=== PATIENT | male | born 1955 | race African-American/Black ===

== ENCOUNTER 2020-03-18 05:15 | Emergency (ER) | payer OTHER, MEDICARE, MEDICAID ==
[~2020-03-18] VITALS: Ht 170.2 cm; Wt 71.7 kg
[2020-03-18] MEDS ORDERED: cloNIDine HCL 0.1 MG TAB PO ONE (07:30)
[2020-03-18] MEDS ORDERED: amLODIPine BESYLATE 5 MG TAB PO ONE (09:00)
[2020-03-18 09:55] VITALS: BP 132/89
== END 2020-03-18 10:12 | disposition home or self-care (01) ==
LOC: EDBD 05:15 → ER 05:15
DX: T14.8XXA Other injury of unspecified body region, initial encounter (principal); I10 Essential (primary) hypertension; V49.9XXA Car occupant (driver) (passenger) injured in unspecified traffic accident, initial encounter; Y93.89 Activity, other specified; Y92.89 Other specified places as the place of occurrence of the external cause; Y99.8 Other external cause status
CPT/HCPCS: 70450; 71250; 72125; 73030; 74176